=== PATIENT | female | born 2000 | race Caucasian/White ===

== ENCOUNTER 2018-07-07 09:41 | Emergency (ER) | payer OTHER ==
[2018-07-07] MEDS ORDERED: NS 1,000 ML IV ONE (10:03)
[2018-07-07] MEDS ORDERED: ONDANSETRON 4 MG/2 ML VIAL IVP ONE (10:03)
--- NOTE | 2018-07-07 10:09 | EDPHY ---
H & P Stated Complaint: n/v Time Seen by Provider: 07/07/18 10:03 HPI/ROS: CHIEF COMPLAINT: Nausea vomiting x2 weeks HISTORY OF PRESENT ILLNESS: 17-year-old nulliparous female complaining of 2 weeks of primarily morning based nausea with intermittent vomiting. However he does note that most foods will cause her nausea. She denies abdominal pain. Denies flank pain. Her boyfriend is currently in the emergency department being evaluated for abdominal pain with recent diagnosis of mononucleosis. She denies sore throat. Denies adenopathy. Denies headache. PRIMARY CARE PROVIDER: REVIEW OF SYSTEMS: 10 systems reviewed and negative with the exception of the elements mentioned in the history of present illness PAST MEDICAL & SURGICAL HISTORY: Nexplanon implanted contraception. Nulliparous SOCIAL HISTORY:Nonsmoker PHYSICAL EXAM (Prior to examination, patient consented to physical exam, hands were washed and my usual and customary physical exam procedures followed) 1) GENERAL: Well-developed, well-nourished, alert and oriented. Appears to be in no acute distress. 2) HEAD: Normocephalic, atraumatic 3) HEENT: Pupils equal, round, reactive to light bilaterally. Sclera anicteric. Nasopharynx, oropharynx, clear, no lesions. No tonsillar enlargement or exudate . Dry mucous membranes. 4) NECK: Full range of motion, no meningeal signs. No adenopathy 5) LUNGS: Clear auscultation bilaterally, no wheezes, no rhonchi, no retractions. 6) HEART: Regular rate and rhythm, no murmur, no heave, no gallop. 7) ABDOMEN: No guarding, no rebound, no focal tenderness, negative McBurney's, negative Shankar's, negative Rovsing's, negative peritoneal sign, 8) MUSCULOSKELETAL: Moving all extremities, no focal areas of tenderness, no obvious trauma. No peripheral edema or discoloration. 9) BACK: No CVA tenderness, no midline vertebral tenderness, no fluctuance, no step-off, no obvious trauma, no visual or palpable abnormality. 10) SKIN: No rash, no petechiae. 11) Psychiatric: Patient is oriented X 3, there is no agitation. DIFFERENTIAL DIAGNOSIS: My differential diagnosis includes, but is not limited to, acute appendicitis, acute cholecystitis, bowel obstruction, acute pancreatitis, ovarian torsion, ectopic , gastritis and urinary tract infection. The patient understands that this diagnosis is provisional and can never be 100% accurate. This is a partial list of diagnoses considered. These considerations are based on history, physical exam, past history and reassessment. - Personal History LMP (Females 10-55): Extended Cycle BCP/Inj Current Tetanus/Diphtheria Vaccine: Yes Current Tetanus Diphtheria and Acellular Pertussis (TDAP): Yes - Medical/Surgical History Hx Asthma: No Hx Chronic Respiratory Disease: No Hx Diabetes: No Hx Cardiac Disease: No Hx Renal Disease: No Hx Cirrhosis: No Hx Alcoholism: No Hx HIV/AIDS: No Hx Splenectomy or Spleen Trauma: No Other PMH: anorexia, breast augmentation, wisdom teeth - Social History Smoking Status: Never smoked Constitutional: Initial Vital Signs Temperature (C) 36.7 C 07/07/18 09:54 Heart Rate 64 07/07/18 09:54 Respiratory Rate 16 07/07/18 09:54 Blood Pressure 120/77 07/07/18 09:54 O2 Sat (%) 100 07/07/18 09:54 O2 Delivery Mode Room Air Allergies/Adverse Reactions: No Known Allergies Allergy (Unverified 07/07/18 09:54) Home Medications: Medication Instructions Recorded Ondansetron Odt [Zofran Odt] 4 mg PO Q4PRN PRN #10 tab 07/07/18 Prozac 20 MG (*) 07/07/18 Medical Decision Making ED Course/Re-evaluation: 10:08 a.m.: Will obtain diagnostic studies including test as patient is unsure whether she may be or not, does note 2 weeks of primarily morning based nausea. 12:17 p.m.: Re-evaluation, feeling significant improvement after IV hydration and IV Zofran. She was concerned she may be . She is not . She continues to have no complaints of abdominal pain. Re-examination her abdomen reveals a soft nontender abdomen , no left upper quadrant pain or splenomegaly. She has positive mono testing. We discussed my usual customary mononucleosis precautions and instructions including, but not limited to, return if abdominal pain, avoiding activities with increased risk of trauma. At this time I think the patient can be discharged home. No airway compromise. I have observed her tolerating oral intake. She would like to be discharged. I saw this patient independently based on established practice protocols. Care of patient under supervision of secondary supervising physician Dr Kelley - Data Points Laboratory Results: Laboratory Results 07/07/18 10:15 07/07/18 10:15 07/07/18 07/07/18 07/07/18 10:15 10:15 10:15 WBC 12.88 10^3/uL H 10^3/uL (3.80-9.50) RBC 5.16 10^6/uL 10^6/uL (4.18-5.33) Hgb 13.6 g/dL g/dL (12.6-16.3) Hct 41.6 % % (38.0-47.0) MCV 80.6 fL L fL (81.5-99.8) MCH 26.4 pg L pg (27.9-34.1) MCHC 32.7 g/dL g/dL (32.4-36.7) RDW 14.9 % % (11.5-15.2) Plt Count 264 10^3/uL 10^3/uL (150-400) MPV 11.2 fL fL (8.7-11.7) Neut % (Auto) 74.1 % % (39.3-74.2) Lymph % (Auto) 19.6 % % (15.0-45.0) [place] % (Auto) 4.5 % % (4.5-13.0) Eos % (Auto) 1.1 % % (0.6-7.6) Baso % (Auto) 0.3 % % (0.3-1.7) Nucleat RBC Rel Count 0.0 % % (0.0-0.2) Absolute Neuts (auto) 9.54 10^3/uL H 10^3/uL (1.70-6.50) Absolute Lymphs (auto) 2.53 10^3/uL 10^3/uL (1.00-3.00) Absolute Monos (auto) 0.58 10^3/uL 10^3/uL (0.30-0.80) Absolute Eos (auto) 0.14 10^3/uL 10^3/uL (0.03-0.40) Absolute Basos (auto) 0.04 10^3/uL 10^3/uL (0.02-0.10) Absolute Nucleated RBC 0.00 10^3/uL 10^3/uL (0-0.01) Immature Gran % 0.4 % % (0.0-1.1) Immature Gran # 0.05 10^3/uL 10^3/uL (0.00-0.10) Sodium 140 mEq/L mEq/L (135-145) Potassium 4.4 mEq/L mEq/L (3.3-5.0) Chloride 104 mEq/L mEq/L (97-110) Carbon Dioxide 22 mEq/l mEq/l (22-31) Anion Gap 14 mEq/L mEq/L (8-16) BUN 10 mg/dL mg/dL (7-23) Creatinine 0.6 mg/dL mg/dL (0.6-1.0) Estimated GFR > 60 Glucose 88 mg/dL mg/dL (70-100) Calcium 9.7 mg/dL mg/dL (8.5-10.4) Total Bilirubin 1.4 mg/dL mg/dL (0.1-1.4) Conjugated Bilirubin 0.2 mg/dL mg/dL (0.0-0.5) Unconjugated Bilirubin 1.2 mg/dL H mg/dL (0.0-1.1) AST 27 IU/L IU/L (14-46) ALT 23 IU/L IU/L (9-52) Alkaline Phosphatase 56 IU/L IU/L (38-126) Total Protein 7.7 g/dL g/dL (6.3-8.2) Albumin 4.6 g/dL g/dL (3.5-5.0) Lipase 90 IU/L IU/L (23-300) Beta HCG, Qual NEGATIVE Monoscreen POSITIVE H (NEGATIVE) Medications Given: Discontinued Medications Sodium Chloride (Ns) 1,000 mls @ 0 mls/hr IV EDNOW ONE; Wide Open PRN Reason: Protocol Stop: 07/07/18 10:04 Last Admin: 07/07/18 10:16 Dose: 1,000 mls Ondansetron HCl (Zofran) 4 mg IVP EDNOW ONE Stop: 07/07/18 10:04 Last Admin: 07/07/18 10:16 Dose: 4 mg Departure - Departure Disposition: Home, Routine, Self-Care Clinical Impression: Mononucleosis Nausea & vomiting Qualifiers: Vomiting type: unspecified Vomiting Intractability: non-intractable Qualified Code(s): R11.2 - Nausea with vomiting, unspecified Condition: Good Instructions: Mononucleosis (ED), Acute Nausea and Vomiting (ED) Additional Instructions: Seek immediate medical attention if you develop new or worsening symptoms, if you develop fevers, chills, inability to tolerate oral intake or any other symptoms that concerns you. You need to avoid activities with an increased risk of sustaining trauma to her abdomen back or chest. Referrals: [facility] [Clinic] - 2-3 days, call for appt. Stand Alone Forms: School Excuse Prescriptions: Ondansetron Odt [Zofran Odt] 4 mg PO Q4PRN PRN #10 tab PRN Reason: Nausea
[2018-07-07 10:34] LABS: PLATELET COUNT 264 10^3/uL (150-400)
[2018-07-07 12:55] VITALS: BP 104/58
== END 2018-07-07 12:54 | disposition home or self-care (01) ==
DX: R11.2 Nausea with vomiting, unspecified (principal); E86.9 Volume depletion, unspecified
CPT/HCPCS: 96374; J2405